=== PATIENT | female | born 1995 | race Caucasian/White ===

== ENCOUNTER 2020-11-23 13:26 | Emergency (ER) | payer OTHER ==
--- NOTE | 2020-11-23 13:38 | EDM.PDOC ---
ED HPI GENERAL MEDICAL PROBLEM - General Chief Complaint: Abdominal Pain Stated Complaint: LOWER ABD PAIN Time Seen by Provider: 11/23/20 13:38 Source of Information: Reports: Patient History Limitations: Reports: No Limitations - History of Present Illness INITIAL COMMENTS - FREE TEXT/NARRATIVE: 25-year-old female presents to the ED for evaluation of severe right lower quadrant abdominal pain. She states she has been having this problem off and on for the last month. She was assessed in [facility] in [place] about a month ago for the same problem. They told her at that time she had a urinary tract infection but she did not receive antibiotics. She has no history of kidney stones. She is currently 17 weeks gestation of #2. She has had no miscarriages. She states pain is constant but does have a colicky component. It does seem to wax and wane in intensity from anywhere from a four to a ten. Usually it is best if she is sitting. It is worse with walking. She feels pain going from her right anterior lateral thigh groin up to her right flank. Pain is intense enough to make her nauseated but she has not vomited. Of note she will vomit still intermittently from the itself. She does not appreciate any hematuria. She has had an ultrasound in to date the with no abnormalities reported over ovary. Onset: Other (She has been having problems with right lower quadrant abdominal pain off and on for the last month but more severe today than ever before.) Onset Date: 10/24/20 Duration: Week(s):, Getting Worse (Pain off and on right lower quadrant again difficult to walk for the last 4 weeks.) Quality: Reports: Ache, Sharp, Stabbing, Other (There is a colicky component to the pain.) Severity: Moderate (Pain waxes and wanes between 4-10 out of 10.) Improves with: Reports: Other (Pain seems to get better in the seated position versus standing or walking which seems to make it worse.) Worsens with: Reports: Other Context: Reports: Other (17 weeks .). Denies: Activity (Usually worse with walking and standing.), Exercise, Lifting, Sick Contact, Trauma Associated Symptoms: Reports: Malaise, Nausea/Vomiting (Nausea without any vomiting today.), Other (Fatigue which she attributes to the .) Treatments RESIDENT ADVISOR: Reports: Other (see below) (None.) Right Lower Abdomen Pain Score (Numeric/FACES): 7 - Related Data Allergies Allergy/AdvReac Type Severity Reaction Status Date / Time No Known Allergies Allergy Verified 11/23/20 13:42 Home Meds: Home Meds Cefdinir [Omnicef 250 MG/5 ML Susp] 300 mg PO BID #120 ml 11/23/20 [Rx] Multivitamin 1 tab PO DAILY 11/23/20 [History] oxyCODONE HCl/Acetaminophen [Percocet 5-325 mg Tablet] 1 - 2 each PO Q4H PRN #16 tablet 11/23/20 [Rx] Past Medical History : 2 Para: 1 Social & Family History - Living Situation & Occupation Living situation: Reports: Occupation: Unemployed ED ROS GENERAL - Review of Systems Review Of Systems: See Below Constitutional: Reports: Fatigue (Attributed to the .). Denies: Fever, Chills, Malaise, Weakness HEENT: Reports: No Symptoms Respiratory: Reports: No Symptoms Cardiovascular: Reports: No Symptoms Endocrine: Reports: Fatigue GI/Abdominal: Reports: Abdominal Pain (See history of present illness.), Other (Patient did have a normal bowel movement this morning. Did not make the pain any worse or better.). Denies: Constipation, Diarrhea : Reports: Frequency Musculoskeletal: Reports: Back Pain (Right flank pain) Skin: Reports: No Symptoms Neurological: Reports: No Symptoms Psychiatric: Reports: No Symptoms Hematologic/Lymphatic: Reports: No Symptoms Immunologic: Reports: No Symptoms ED EXAM, GI/ABD - Physical Exam Exam: See Below General Appearance: Moderate Distress Eyes: Bilateral: Normal Appearance Respiratory/Chest: No Respiratory Distress, Lungs Clear, Normal Breath Sounds, No Accessory Muscle Use Cardiovascular: Normal Peripheral Pulses, Regular Rate, Rhythm, No Edema, No Gallop, No Murmur, No Rub GI/Abdominal Exam: Normal Bowel Sounds, Soft, No Organomegaly, No Distention, No Abnormal Bruit, Tender (Tender only to deep palpation right lower quadrant right groin just above the inguinal ligament and adjacent to the anterior superior iliac spine.), Other (Gravid uterus clinically at 16 to 17 weeks gestation. I could not get elicit any significant uterine pain or round ligament pain. No evidence of a femoral hernia identified or inguinal hernia.) Back Exam: Normal Inspection, Full Range of Motion. No: CVA Tenderness (L), CVA Tenderness (R) Extremities: Normal Inspection, Normal Range of Motion, Non-Tender, No Pedal Edema Neurological: Alert, Oriented, CN II-XII Intact, Normal Cognition, Other (Nurses identified that she walked into the ED hunched over and could not stand fully erect.) Psychiatric: Normal Affect, Normal Mood Skin Exam: Warm, Dry, Intact, Normal Color, No Rash Course - Vital Signs Last Recorded V/S: Last Vital Signs Temp 36.3 C 11/23/20 13:37 Pulse 85 11/23/20 13:37 Resp 20 11/23/20 13:37 BP 82/67 L 11/23/20 13:37 Pulse Ox 100 11/23/20 13:37 - Orders/Labs/Meds Orders: Active Orders 24 hr Category Date Time Status OB Ltd 1 or More Fetus [US] Stat Exams 11/23/20 13:56 Taken Retroperitoneal Comp [US] Stat Exams 11/23/20 14:03 Taken Labs: Laboratory Tests 11/23/20 Range/Units 16:20 Urine Color Yellow (Yellow) Urine Appearance Cloudy H (Clear) Urine pH 7.5 (5.0-8.0) Ur Specific Mobile 1.020 (1.005-1.030) Urine Protein Negative (Negative) Urine Glucose (UA) Negative (Negative) Urine Ketones 1+ H (Negative) Urine Occult Blood Negative (Negative) Urine Nitrite Negative (Negative) Urine Bilirubin Negative (Negative) Urine Urobilinogen 0.2 (0.2-1.0) Ur Leukocyte Esterase Trace H (Negative) Urine RBC 0-5 (0-5) /hpf Urine WBC 0-5 (0-5) /hpf Ur Squamous Epith Cells 10-20 H (0-5) /hpf Amorphous Sediment Many H (NOT SEEN) /hpf Urine Bacteria Few (FEW) /hpf Urine Mucus Few (FEW) /hpf Meds: Medications Discontinued Medications Generic Name Dose Route Start Last Admin Trade Name Freq PRN Reason Stop Dose Admin Ondansetron HCl 4 mg 11/23/20 16:40 11/23/20 16:48 Ondansetron 4 Mg Tab.Dis PO 11/23/20 16:41 4 mg ONETIME ONE Administration Oxycodone/Acetaminophen 1 tab 11/23/20 16:40 11/23/20 16:48 Acetaminophen/Oxycodone 325-5 Mg Tab PO 11/23/20 16:41 1 tab ONETIME ONE Administration - Radiology Interpretation Free Text/Narrative:: 25-year-old female who is currently 17 weeks gestation presents to the ED with acute exacerbation of chronic right lower abdominal pain which she is experienced for the last month. She is was worked up by [facility] in [place] a month ago and told that she had suspected urine infection but she was not treated with antibiotics. She has some nausea associated with the . Pain today was worse than what she is ever experienced in the last month. It had her hunched over and she could not walk. Pain traveled from her right anterior lateral upper thigh to her right flank she states that 20 minutes before arrival she would have labeled his pain is a 10 out of 10. At rest and on her back she is currently 4 out of 10. In the past pain relief was usually a chieved by getting into the seated position. It is usually made worse by walking. She has been followed by a chiropractor recently who is digging deep into her right lower abdomen indicating that she has an iliopsoas muscle strain. This is highly unlikely. Bowels work normally this morning. She has urinary frequency but does not appreciate any dysuria. She has had no fever or chills. Plan. Bladder is mildly full at this time. I am going to order a transabdominal ultrasound to look at the right ovary and also at the right kidney does look for hydronephrosis as her history is highly suspect for kidney stone. After the ultrasound we will have a urinalysis performed. Her abdomen is otherwise benign there is no evidence of appendicitis. - Re-Assessments/Exams Free Text/Narrative Re-Assessment/Exam: 11/23/20 16:15: Doppler ultrasound of the kidneys was completed. It evaluated the segmental arteries right and left kidneys with good color flow identified bilaterally. Normal spectral waveforms. Resistive indices on the right and left are normal measuring less than 0.7. There was no evidence of hydronephrosis. Real-time ultrasound of the retroperitoneum revealed minimal prominence of the right renal pelvis with very minimal fullness of the right renal collecting system. Right kidney measures 11.9 cm in craniocaudal dimension. The left kidney measures 11.8 cm in length. Mild fullness of the left renal pelvis was also appreciated no gross hydronephrosis evident. Intraperitoneal space reveals a very small amount of fluid in the right lower quadrant or right adnexal area. Urinary bladder appears unremarkable. Bilateral ureteral jets identified. Bladder wall thickness is mildly prominent at 5 mm which may relate to incompletely distended state. Ultrasound of the right lower quadrant of the abdomen reveals the ovaries to be obscured by overlying bowel gas. However there was a minimal amount of free fluid adjacent to the right adnexa concerning for possible rupture of a small ovarian cyst. There is a single viable intrauterine at 17 weeks and 3 days of age. Estimated date of delivery is 04/30/2021. heartbeat was 146 bpm. 11/23/20 16:30: Urinalysis reveals it to to be cloudy with 1+ ketones and trace of leukocyte Estrace with 10-20 epithelial cells and many amorphous sediment. No red cells or red blood cells reported on the micro. The dip in the ED suggested 4+ leukocyte esterase and 4+ blood. Patient will therefore be started on Omnicef suspension at her request to take liquid medicine versus tablets. She will take 6 mils which would be 300 mg of Omnicef twice daily for the next 10 days. It appears that she is got an active infection of her right ureter which is mimicking a kidney stone as she is getting strong spastic pain intermittently. I did prescribe Percocet tabs 5/325 mg strength 1 tablet every 4-6 hours necessary for pain relief times total of 12 tablets. She has Zofran sublingual 4 mg at home for nausea relief if needed. Departure - Departure Time of Disposition: 16:41 Disposition: Home, Self-Care 01 Condition: Fair Clinical Impression: Right lower quadrant abdominal pain, Upper urinary tract infection, Ovarian cyst - Discharge Information *PRESCRIPTION DRUG MONITORING PROGRAM REVIEWED*: Not Applicable *COPY OF PRESCRIPTION DRUG MONITORING REPORT IN PATIENT SANDRA: Not Applicable Prescriptions: Cefdinir [Omnicef 250 MG/5 ML Susp] 300 mg PO BID #120 ml oxyCODONE HCl/Acetaminophen [Percocet 5-325 mg Tablet] 1 - 2 each PO Q4H PRN #16 tablet PRN Reason: pain relief. Referrals: PCP,None [Ordering Only Provider] - Forms: ED Department Discharge Additional Instructions: Evaluation in the emergency room today in regards to severe right lower quadrant abdominal pain that has a very strong spastic or colicky component to it suggestive of a kidney stone. Pain intensifies at times enough to make you nauseated suggestive of a kidney stone. Ultrasound of the right lower quadrant did suggest some fluid around the right ovary suggesting the possibility of an ovarian cyst that may have ruptured causing some degree of pain. I could not see the ovary we will well because of overlying bowel and bowel gas on ultrasound. Ultrasound of the kidney on the right side shows no abnormality and good flow of urine into the urinary bladder. The urinary bladder had a little thickened wall suggesting an infection is occurring. On urinalysis evaluation in the emergency room there is evidence of an infection with blood and pus cells in the urine test. This suggest that the ureter which travels from the bladder up to the kidney has an infection in it and is going intermittent spasm due to the inflammation acting like a kidney stone does. You may need Zofran under the tongue every 6 hours for nausea relief for the next day or 2. Suggest Percocet tab 1 tablet ideally every 4-6 hours necessary for relief of pain for the next day to day and a half until the antibiotics become effective. You were prescribed antibiotic called Omnicef suspension since you prefer to take liquid medication versus tablets. Take 6 mils twice daily for the next 10 days to clear up urinary tract infection. Follow-up with your [employer] or return to the ED if not markedly improved in 48 hours time. Sepsis Event Note (ED) - Focused Exam Vital Signs: Vital Signs Temp Pulse Resp BP Pulse Ox 11/23/20 13:37 36.3 C 85 20 82/67 L 100 - My Orders Last 24 Hours: My Active Orders 11/23/20 13:56 OB Ltd 1 or More Fetus [US] Stat - Assessment/Plan Last 24 Hours: My Active Orders 11/23/20 13:56 OB Ltd 1 or More Fetus [US] Stat
[2020-11-23] MEDS ORDERED: Ondansetron 4 MG Tab.DIS PO ONE (16:40)
[2020-11-23] MEDS ORDERED: Acetaminophen/oxyCODONE 325-5 MG Tab PO ONE (16:40)
--- NOTE | 2020-11-23 19:16 | US ---
Obstetrical ultrasound: Multiple real-time images were obtained transabdominally. Comparison: No prior obstetrical imaging is available. Dates: Working EZRA: 04/30/21, gestational age 17 weeks 3 days Current ultrasound: EZRA 04/30/21, gestational age 17 weeks 3 days presentation: Mobile Placenta: Posterior with no findings of placenta previa Amniotic fluid: JOELLEN 15.3 cm ovaries: Not visualized, minimal free fluid within the right adnexa which is believed to be incidental. Measurements: BPD: 3.85 cm - 17 weeks 5 days Head circumference: 14.03 cm - 17 weeks 3 days Abdominal circumference: 11.97 cm - 17 weeks 5 days Femur length: 2.19 cm - 16 weeks 4 days Estimated weight: 184 g (0 lbs. 6 oz.), estimated weight at the 29th percentile for age by working EZRA Heart rate: 146 bpm Cervical length: 3.3 cm Impression: 1. Single intrauterine fetus currently mobile in presentation. Dates as noted above. 2. No complicating process is seen by ultrasound at this time. Diagnostic code #1 I agree with preliminary report from [facility], finalized on 11/23/20, 4:23 PM CDT, code 1
--- NOTE | 2020-11-23 19:18 | US ---
Renal ultrasound: Multiple real-time images were obtained of both kidneys. Slightly prominent renal pelvis is noted within both kidneys. This is most likely due to mild hydronephrosis of . No ureteral dilatation is appreciated. Resistivity indices are normal within both kidneys. Bilateral ureteral jets are seen within the bladder. Prevoid volume is 99 mL within the bladder and postvoid volume is 0. Minimal free fluid is seen within the right lower pelvis which is most likely incidental. Measurements: Right kidney length: 11.9 cm Left kidney length: 11.8 cm Impression: 1. Slightly prominent renal pelvis on both sides which is most likely due to mild hydronephrosis of . 2. Minimal free fluid within the right pelvis which is most likely incidental. 3. No additional abnormality is seen on renal ultrasound exam. Diagnostic code #2 I agree with preliminary report from [facility], finalized on 11/23/20, 4:49 PM CDT, code 1
== END 2020-11-23 17:15 | disposition home or self-care (01) ==
LOC: JD.ED 13:26
DX: O23.42 Unspecified infection of urinary tract in pregnancy, second trimester (principal); O34.82 Maternal care for other abnormalities of pelvic organs, second trimester; N83.201 Unspecified ovarian cyst, right side; Z3A.17 17 weeks gestation of pregnancy
CPT/HCPCS: 76770; 76815; 81001; 87086; 99284; A9270